=== PATIENT | male | born 1940 | race Caucasian/White ===

== ENCOUNTER 2018-04-17 08:28 | Outpatient (CLI) | payer OTHER | END 2018-04-17 09:03 | disposition home or self-care (01) | LOC: LAB 08:28 | DX: D68.8 Other specified coagulation defects (principal); E88.89 Other specified metabolic disorders; E83.42 Hypomagnesemia; D64.89 Other specified anemias; B95.62 Methicillin resistant Staphylococcus aureus infection as the cause of diseases classified elsewhere; N39.0 Urinary tract infection, site not specified; E03.8 Other specified hypothyroidism; E11.9 Type 2 diabetes mellitus without complications; E55.9 Vitamin D deficiency, unspecified; Z76.89 Persons encountering health services in other specified circumstances; I49.8 Other specified cardiac arrhythmias; Z01.810 Encounter for preprocedural cardiovascular examination; Z01.812 Encounter for preprocedural laboratory examination ==

== ENCOUNTER → 2018-04-28 | Day surgery (SDC) | payer OTHER | END | disposition home or self-care (01) | LOC: CIR.AMB 06:41 | DX: M75.111 Incomplete rotator cuff tear or rupture of right shoulder, not specified as traumatic (principal); M75.21 Bicipital tendinitis, right shoulder; M65.811 Other synovitis and tenosynovitis, right shoulder ==

== ENCOUNTER 2018-06-10 15:27 | Emergency (ER) | payer OTHER ==
[~2018-06-10] VITALS: Ht 170.2 cm; Wt 81.6 kg
== END 2018-06-10 17:54 | disposition home or self-care (01) ==
LOC: ER 15:27
DX: M54.5 Low back pain (principal); G89.11 Acute pain due to trauma